=== PATIENT | female | born 1985 | race Caucasian/White ===

== ENCOUNTER 2018-02-13 17:55 | Emergency (ER) | payer MEDICAID, OTHER ==
[~2018-02-13] VITALS: Ht 565.3 cm; Wt 52.4 kg
[2018-02-13] MEDS ORDERED: LORazepam 1 MG tablet PO ONE (18:50)
[2018-02-13 19:29] LABS: BASOPHILS % (AUTO) 0.3 % (0-1); EOSINOPHILS # (AUTO) 0.2 X10'3 (0-0.9); EOSINOPHILS % (AUTO) 1.5 % (0-6); HEMATOCRIT 42.2 % (35.0-45.0); HEMOGLOBIN 14.6 g/dl (12.0-16.0); LYMPHOCYTES # (AUTO) 2.8 X10'3 (1.1-4.8); LYMPHOCYTES % (AUTO) 24.5 % (21-51); MEAN CORPUSCULAR HEMOGLOBIN 31.8 PG (27.0-31.0); MEAN CORPUSCULAR HGB CONC 34.6 % (33.0-36.5); MEAN PLATELET VOLUME 7.8 FL (7.4-10.4); MONOCYTES # (AUTO) 0.7 X10'3 (0-0.9); MONOCYTES % (AUTO) 5.7 % (2-12); NEUTROPHILS # (AUTO) 7.7 X10'3 (1.8-7.7); PLATELET COUNT 325 X10'3 (140-440); RED BLOOD COUNT 4.59 X10'6 (4.20-5.60); RED CELL DISTRIBUTION WIDTH 12.8 % (11.5-14.5); WHITE BLOOD COUNT 11.4 X10'3 (4.5-11.0)
[2018-02-13 19:30] LABS: URINE HCG NEGATIVE (NEG)
[2018-02-13 19:36] LABS: CLARITY,URINE SLIGHTLY CLOUDY (Clear); COLOR,URINE YELLOW (Yellow); GLUCOSE, URINE NEGATIVE (Neg); KETONES,URINE 15 mg/dl (Neg); LEUKOCYTE ESTERASE ,URINE NEGATIVE (Neg); NITRITES, URINE NEGATIVE (Neg); OCCULT BLOOD,URINE NEGATIVE (Neg); PH,URINE 5.5 (4.8-8.0); PROTEIN,URINE TRACE mg/dl (Neg); UROBILINOGEN,URINE 0.2 E.U/dL (0.2-1.0)
[2018-02-13 19:37] LABS: UA COLLECTION TYPE CLN CATCH MIDSTREAM
[2018-02-13 19:40] LABS: ALANINE AMINOTRANSFERASE 24 U/L (12-78); ALBUMIN/GLOBULIN RATIO 1.1 (1.1-1.5); ALKALINE PHOSPHATASE 43 IU/L (46-116); ANION GAP 11 (8-16); ASPARTATE AMINO TRANSFERASE 13 U/L (10-37); BILIRUBIN,TOTAL 0.9 MG/DL (0.1-1.0); BLOOD UREA NITROGEN 15 MG/DL (7-18); BUN/CREATININE RATIO 15.6 (6.6-38.0); CALCIUM 9.1 MG/DL (8.5-10.1); CHLORIDE 105 MMOL/L (99-107); CREATININE 0.96 MG/DL (0.40-0.90); GLUCOSE 141 MG/DL (70-104); POTASSIUM 3.4 MMOL/L (3.5-5.1); SODIUM 142 MMOL/L (135-145); TOTAL CARBON DIOXIDE 25.7 MMOL/L (24-32); TOTAL PROTEIN 7.8 G/DL (6.4-8.2); eGFR 67 ML/MIN
[2018-02-13 19:41] LABS: URINE AMPHETAMINE SCREEN POSITIVE (Neg); URINE BARBITUATE SCREEN NEGATIVE (Neg); URINE BENZODIAZEPINES SCREEN POSITIVE (Neg); URINE CANNABINOID SCREEN POSITIVE (Neg); URINE COCAINE SCREEN NEGATIVE (Neg); URINE METHADONE SCREEN NEGATIVE (Neg); URINE OPIATE SCREEN NEGATIVE (Neg); URINE PHENCYCLIDINE SCREEN NEGATIVE (Neg)
[2018-02-13 19:47] LABS: ETHANOL < 0.010 GM/DL (0.0-0.010)
[2018-02-13 19:47] LABS: BACTERIA,URINE 2+ /HPF (Neg); WBC,URINE 0-4 /HPF (0-4)
[2018-02-13 19:48] LABS: ACETAMINOPHEN < 2.0 UG/ML (10-30)
[2018-02-13 19:48] LABS: MUCUS STRANDS MANY /LPF (Neg); SQUAMOUS EPITHELIAL CELL,UR MANY /LPF (FEW)
[2018-02-13] MEDS ORDERED: NO HOME MEDS (22:30)
[2018-02-14 05:30] VITALS: BP 100/67
== END 2018-02-14 13:50 ==
LOC: ER 17:56
DX: F31.9 Bipolar disorder, unspecified (principal); F41.9 Anxiety disorder, unspecified; R45.851 Suicidal ideations; R45.850 Homicidal ideations; F12.90 Cannabis use, unspecified, uncomplicated
CPT/HCPCS: 36415; 80053; 80305; 80320; 80329; 81001; 81025; 84443; 85025; 99285

== ENCOUNTER 2022-04-12 15:59 | Inpatient (IN) | payer MEDICARE, MEDICAID ==
[~2022-04-12] VITALS: Ht 162.6 cm; Wt 61.5 kg
[~2022-04-12 15:59] MED LIST: NO HOME MEDS
[2022-04-12 16:38] LABS: BASOPHILS % (AUTO) 0.4 % (0-1); EOSINOPHILS # (AUTO) 0.1 X10'3 (0-0.9); EOSINOPHILS % (AUTO) 0.5 % (0-6); HEMATOCRIT 39.3 % (35.0-45.0); HEMOGLOBIN 13.6 g/dl (12.0-16.0); LYMPHOCYTES # (AUTO) 2.1 X10'3 (1.1-4.8); LYMPHOCYTES % (AUTO) 17.9 % (21-51); MEAN CORPUSCULAR HEMOGLOBIN 32.3 PG (27.0-31.0); MEAN CORPUSCULAR HGB CONC 34.6 g/dL (33.0-36.5); MEAN CORPUSCULAR VOLUME 93.4 FL (78-98); MEAN PLATELET VOLUME 7.4 FL (7.4-10.4); MONOCYTES # (AUTO) 0.9 X10'3 (0-0.9); MONOCYTES % (AUTO) 7.3 % (2-12); NEUTROPHILS # (AUTO) 8.8 X10'3 (1.8-7.7); NEUTROPHILS % (AUTO) 73.9 % (42-75); PLATELET COUNT 274 X10'3 (140-440); RED BLOOD COUNT 4.21 X10'6 (4.20-5.60); RED CELL DISTRIBUTION WIDTH 13.2 % (11.5-14.5)
[2022-04-12 16:54] LABS: ALANINE AMINOTRANSFERASE 16 U/L (12-78); ALBUMIN 4.1 G/DL (3.4-5.0); ALKALINE PHOSPHATASE 60 IU/L (46-116); ANION GAP 16 (8-16); ASPARTATE AMINO TRANSFERASE 17 U/L (10-37); BILIRUBIN,TOTAL 0.8 MG/DL (0.1-1.0); BLOOD UREA NITROGEN 17 MG/DL (7-18); CALCIUM 8.5 MG/DL (8.5-10.1); CHLORIDE 99 MMOL/L (99-107); CREATININE 0.81 MG/DL (0.40-0.90); GLUCOSE 79 MG/DL (70-104); POTASSIUM 3.4 MMOL/L (3.5-5.1); SODIUM 136 MMOL/L (135-145); TOTAL PROTEIN 8.2 G/DL (6.4-8.2); eGFR 80 ML/MIN
[2022-04-12 17:04] LABS: CLARITY,URINE CLOUDY (Clear); GLUCOSE, URINE NEGATIVE (Neg); KETONES,URINE >=80 mg/dl (Neg); LEUKOCYTE ESTERASE ,URINE NEGATIVE (Neg); NITRITES, URINE NEGATIVE (Neg); OCCULT BLOOD,URINE LARGE (Neg); PROTEIN,URINE 30 mg/dl (Neg)
[2022-04-12 17:04] LABS: ETHANOL < 0.010 GM/DL (0.0-0.010)
[2022-04-12 17:05] LABS: COLOR,URINE DARK YELLOW (Yellow); UA COLLECTION TYPE CLN CATCH MIDSTREAM
[2022-04-12 17:06] LABS: URINE HCG NEGATIVE (NEG)
[2022-04-12 17:11] LABS: BACTERIA,URINE 1+ /HPF (Neg); MUCUS STRANDS MANY /LPF (Neg); RBC,URINE 50-100 /HPF (0-2); SQUAMOUS EPITHELIAL CELL,UR MANY /LPF (FEW); WBC,URINE 0-4 /HPF (0-4)
[2022-04-12 17:18] LABS: URINE AMPHETAMINE SCREEN POSITIVE (Neg); URINE BARBITUATE SCREEN NEGATIVE (Neg); URINE BENZODIAZEPINES SCREEN POSITIVE (Neg); URINE CANNABINOID SCREEN POSITIVE (Neg); URINE COCAINE SCREEN POSITIVE (Neg); URINE METHADONE SCREEN NEGATIVE (Neg); URINE OPIATE SCREEN NEGATIVE (Neg); URINE PHENCYCLIDINE SCREEN NEGATIVE (Neg)
[2022-04-12] MEDS ORDERED: DIAZ5TAB5 PO (17:50)
[2022-04-12] MEDS ORDERED: nicotine 21mg patch - 24 hr TD ONE (17:50)
[2022-04-12] MEDS ORDERED: BUSP30TA3 PO (17:50)
[2022-04-12] MEDS ORDERED: FLUO-10 PO (17:50)
[2022-04-12] MEDS ORDERED: OLAN10TA73 PO (17:50)
[2022-04-12] MEDS ORDERED: FLUO40CA PO (17:50)
--- NOTE | 2022-04-12 20:32 | NUR ---
PT IN BED SLEEPING. ROOM IN FREE OF ALL CORDS AND EQUIPMENT. PT IS IN GREEN SCRUBS.
--- NOTE | 2022-04-12 21:17 | NUR ---
Client to be admitted to [facility] for suicidal ideation per Dr. Manuela Bose.
[2022-04-12 23:40] VITALS: BP 104/65
[2022-04-13] MEDS ORDERED: mag hydrox/Alum hydrox/simeth 30ml oral suspension PO PRN (01:25)
[2022-04-13] MEDS ORDERED: loperamide 2mg capsule PO PRN (01:25)
[2022-04-13] MEDS ORDERED: acetaminophen 325mg tablet PO PRN (01:25)
--- NOTE | 2022-04-13 02:03 | NUR ---
EEO OFFICER NOTE: LEGAL HOLD: 5150 for DTS PROBLEM: Client transferred to [facility] from ED at 23:35. Client reported taking 20 Valium Tabs and breaking a glass jar she then used to cut both wrists. Client reported a history of Bipolar DO, depression, anxiety, BPD, Bulimia (resolved), suicide attempts, and self injurious behavior. INTERVENTION: I. Provide a therapeutic environment. I. 1:1 intervention to allow client express her thoughts and feelings. I. Encourage attendance in groups. I.. Monitor mood, affect, and behavior. I. Admission assessments. RESPONSE: Clients' fiance broke off their engagement. Client stated, "I already have my dress, my ring, and the venue booked." Client was tearful during admission. (They have been together for 4 years. She has two children from a previous marriage.) Client reported she was extremely upset and took 20 Valium Tabs. In response, her family took all the sharp objects out of her house. Client became enraged and broke a michelle jar and cut her wrists. Client has a history of cutting starting in her twenties. Client reported prior attempts by overdose. She has had two prior inpatient psych admits ([facility] and [facility]). Reports a diagnosis of Bipolar DO and states, "I hear voices when I'm manic." UDS was positive for Benzo's, cannabis, cocaine, and amphetamines (has script for Adderall). Reports dx of Borderline Personality Disorder. Client was tearful during admission. She declined a shower. Affect and mood are depressed. Went to bed after assessments were completed.
[2022-04-13 08:00] VITALS: BP 92/55
[2022-04-13] MEDS: FLUoxetine 20mg capsule PO SCH ×2 (08:52)
[2022-04-13] MEDS: busPIRone 15mg tablet PO SCH ×2 (08:52→20:37)
[2022-04-13] MEDS: diazepam 5mg tablet PO PRN ×2 (13:16→20:42)
--- NOTE | 2022-04-13 13:18 | NUR ---
PRNs Administered: Valium Interventions Offered: Pt. was provided with a quiet environment free from distractions and active listening. Response to Medication: Pt. thanked this procedure writer for them medication, will continue to monitor closely.
[2022-04-13] MEDS: nicotine 21mg patch - 24 hr TD SCH (13:50)
--- NOTE | 2022-04-13 16:15 | NUR ---
Nursing Progress Note: Problem : Client was admitted from the ER. Client reported taking 20 Valium Tabs and breaking a glass jar she then used to cut both wrists. Client reported a history of Bipolar DO, depression, anxiety, BPD, Bulimia (resolved), suicide attempts, and self injurious behavior. Interventions : Introduced self and established rapport, maintained a safe and supportive environment, provided clear and simple instructions, provided active listening and positive encouragement, obtained pictures of self-inflicted abrasions on bilateral arms, and maintained Q15 min safety checks. Response : Received pt. sleeping in bed at the beginning of the shift, she was awoken to attend breakfast in the Group Room and afterwards returned back to bed. Pt. continued to isolate in her room throughout much of the shift, napping intermittently. 1:1 was completed at bedside, pt. presents as cooperative, fatigued, guarded, and withdrawn. She reports ongoing S/I, however denies any current plan. Pt. laughs and states, "The plan is gone now!" She appears to be minimizing any mental health s/s. Pt. has self-inflicted superficial abrasions present on her bilateral arms. Areas appear to be scabbed over and healing well. Pictures obtained and placed in chart, will continue to monitor pt. closely. Plan : Pt. requires interruption of current crisis, medication adjustments, and a safe and supportive environment.
[2022-04-13 20:00] VITALS: BP 99/59
[2022-04-13] MEDS: olanzapine 10mg tablet PO SCH (20:37)
[2022-04-13] MEDS: traZODone 50mg tablet PO PRN (20:42)
--- NOTE | 2022-04-14 01:55 | NUR ---
Nursing Progress Note: Seema Problem : Client was admitted from the ER. Client reported taking 20 Valium Tabs and breaking a glass jar she then used to cut both wrists. Client reported a history of Bipolar DO, depression, anxiety, BPD, Bulimia (resolved), suicide attempts, and self injurious behavior. Interventions : Introduced self and established rapport, maintained a safe and supportive environment, provided clear and simple instructions, provided active listening and positive encouragement, obtained pictures of self-inflicted abrasions on bilateral arms, and maintained Q15 min safety checks. Response : Received pt. lying in bed resting. 1:1 assessment complete at bedside, pt. presents as cooperative, fatigued, guarded, and withdrawn. She reports ongoing S/I, however denies any current plan. Pt tearful at times stating that she misses her children and doesnt know what to do (states she doesnt like it here or at home.) PRN 5MG valium and 50MG trazadone given upon request with good effect. Pt declined snacks and went back to bed, will continue to monitor pt. closely. Plan : Pt. requires interruption of current crisis, medication adjustments, and a safe and supportive environment.
[2022-04-14] MEDS: busPIRone 15mg tablet PO SCH ×2 (07:36→20:45)
[2022-04-14] MEDS: nicotine 21mg patch - 24 hr TD SCH (07:36)
[2022-04-14] MEDS: FLUoxetine 20mg capsule PO SCH ×2 (07:37→08:00)
[2022-04-14 07:50] VITALS: BP 98/59
[2022-04-14 08:57] LABS: CHOL/HDL RATIO 2.5 (0.00-4.99); CHOLESTEROL 196 MG/DL (0-200); HDL CHOLESTEROL 79 MG/DL (35-60); LDL CHOLESTEROL 95 MG/DL (50-100); TRIGLYCERIDES 105 MG/DL (20-135)
[2022-04-14 09:15] LABS: HEMOGLOBIN A1C 5.1 % (4.5-6.2)
[2022-04-14] MEDS: diazepam 5mg tablet PO PRN ×2 (14:11→20:45)
[2022-04-14] MEDS: OLANZapine 2.5MG tablet PO PRN (17:30)
--- NOTE | 2022-04-14 18:02 | NUR ---
Nursing Progress Note: Problem: Client was admitted from the ER. Client reported taking 20 Valium Tabs and breaking a glass jar she then used to cut both wrists. Client reported a history of Bipolar DO, depression, anxiety, BPD, Bulimia (resolved), suicide attempts, and self-injurious behavior. Intervention: Provided with a safe and therapeutic environment, clear communication, active listening and positive encouragement. Response: Patient is resting quietly in bed at the start of the shift. Cooperative with medication and assessment. Continues to endorse suicidal ideation related to her recent breakup and overwhelming responsibilities. States tearfully, I just keep thinking of all the ways I could hurt myself even in here but I cant! PRN diazepam is given with good effect. After 2-3 hours the patient asks for another PRN. She is tearful and complains of intrusive thoughts of wanting to harm herself. Assisted with getting phone numbers off her phone. Provider gives a new order for Zyprexa PRN which is given. Patient isolates to her room most of the shift. Plan: Patient continues to require crisis interruption and stabilization with medication management and monitoring in a safe and therapeutic environment.
[2022-04-14 19:54] VITALS: BP 99/69
[2022-04-14] MEDS: olanzapine 10mg tablet PO SCH (20:44)
[2022-04-14] MEDS: traZODone 50mg tablet PO PRN (20:44)
--- NOTE | 2022-04-15 00:42 | NUR ---
Nursing Progress Note: Seema Problem: Client was admitted from the ER. Client reported taking 20 Valium Tabs and breaking a glass jar she then used to cut both wrists. Client reported a history of Bipolar DO, depression, anxiety, BPD, Bulimia (resolved), suicide attempts, and self-injurious behavior. Intervention: Provided with a safe and therapeutic environment, clear communication, active listening and positive encouragement. Response: Patient is resting in bed at change of shift. Pt is cooperative with care, endorses SI related to her recent breakup. Pt tearful at times stating that she misses her children and has court on Friday for custody of them which has been very stressful for her. Pt is anxious and depressed, PRN diazepam given with good effect. Pt declined snacks but took all HS medications without issue. Isolated to her room all evening. Plan: Patient continues to require crisis interruption and stabilization with medication management and monitoring in a safe and therapeutic environment.
[2022-04-15 08:00] VITALS: BP 90/50
[2022-04-15] MEDS: busPIRone 15mg tablet PO SCH ×2 (08:11→19:49)
[2022-04-15] MEDS: FLUoxetine 20mg capsule PO SCH ×2 (08:12)
[2022-04-15] MEDS: nicotine 21mg patch - 24 hr TD SCH (08:12)
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
[2022-04-15 19:41] VITALS: BP 101/66
[2022-04-15] MEDS: traZODone 50mg tablet PO PRN (19:48)
[2022-04-15] MEDS: olanzapine 10mg tablet PO SCH (19:49)
[2022-04-15] MEDS: NICOTINE POLACRILEX 2 MG LOZENGE BC PRN (19:54)
[2022-04-15] MEDS: diazepam 5mg tablet PO PRN (19:58)
--- NOTE | 2022-04-16 01:57 | NUR ---
Nursing Progress Note: Seema Problem: Patient admitted on 5249 as DTS for taking 20 Valium Tabs and breaking a glass jar she then used to cut both wrists. Patient with history of Bipolar Disorder, depression, anxiety, Borderline Personality Disorder, Bulimia (resolved), suicide attempts, and self-injurious behavior. Intervention: Introduced self and established rapport, maintained a safe and supportive environment, provided clear and simple instructions, provided active listening and positive encouragement, obtained pictures of self-inflicted abrasions on bilateral arms, and maintained Q15 min safety checks. Response: Patient cooperative with care, vocalized SI related to her recent breakup with no specific plan. Patient verbalized being stressed about having to go to court on Friday for custody of children. Complained of being anxious and depressed and asked for PRN diazepam; requested PRN medication given per MD order with good effect. Took all medications; patient verbalized that medications have been helping her. Patient last seen laying in bed comfortably. Plan: Patient continues to require crisis interruption and stabilization with medication management and monitoring in a safe and therapeutic environment.
[2022-04-16] MEDS: busPIRone 15mg tablet PO SCH ×2 (08:06→20:19)
[2022-04-16] MEDS: FLUoxetine 20mg capsule PO SCH ×2 (08:06)
[2022-04-16] MEDS: nicotine 21mg patch - 24 hr TD SCH (08:09)
[2022-04-16 08:18] VITALS: BP 95/51
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
[2022-04-16 19:23] VITALS: BP 101/54
[2022-04-16] MEDS: NICOTINE POLACRILEX 2 MG LOZENGE BC PRN (20:19)
[2022-04-16] MEDS: diazepam 5mg tablet PO PRN (20:19)
[2022-04-16] MEDS: olanzapine 10mg tablet PO SCH (20:19)
--- NOTE | 2022-04-17 01:18 | NUR ---
Nursing Progress Note: Seema Problem: Patient admitted on 5250 as DTS for taking 20 Valium Tabs and breaking a glass jar she then used to cut both wrists. Patient with history of Bipolar Disorder, depression, anxiety, Borderline Personality Disorder, Bulimia (resolved), suicide attempts, and self-injurious behavior. Intervention: Introduced self and established rapport, maintained a safe and supportive environment, provided clear and simple instructions, provided active listening and positive encouragement, and maintained Q15 minute safety checks. Response: Patient cooperative with assessment, vocalized SI related to multiple stressors. Patient verbalized being stressed about being away from her sons, rip-tara continuing to live in her house although her kids are with him, and her not feeling inadequate. Patient verbalized gratitude for taking time to talk with her and listen to her. PRN Valium administered with good effect. Patient last seen laying in bed comfortably. Plan: Patient continues to require crisis interruption and stabilization with medication management and monitoring in a safe and therapeutic environment.
--- NOTE | 2022-04-17 07:26 | NUR ---
Initial: Pt admitted w/ depression and SI per EMR. Currently on Regular diet w/ avg intake 60% of meals meeting est needs at this time. Pt still feeling very depressed per MD note. LBM 04/15. No nutrition intervention implemented at this time, will continue to monitor. Recs: 1. Continue Regular diet as tolerated 2. Bowel care PRN 3. Scaled wts Addendum: 04/17/22 at [address] Amended: Links added.
[2022-04-17] MEDS: acetaminophen 325mg tablet PO PRN (07:41)
[2022-04-17] MEDS: nicotine 21mg patch - 24 hr TD SCH (07:42)
[2022-04-17 07:51] VITALS: BP 84/50
[2022-04-17] MEDS: busPIRone 15mg tablet PO SCH ×2 (09:05→20:30)
[2022-04-17] MEDS: FLUoxetine 20mg capsule PO SCH ×2 (09:05)
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
--- NOTE | 2022-04-17 18:00 | NUR ---
Nursing Progress Note: Problem: Patient was arrested for running naked in traffic on [address]. Pt stated running in traffic nude is "Healthy" and failed to realize the dangers. Pt not drinking water and gravely disabled. Pts history is unknown and pt is poor historian. Intervention: Provided with a safe and therapeutic environment, clear communication, active listening and positive encouragement. Scheduled medications administered per order. Response: Pt. was asleep in bed at start of shift. Pt awoke and ate breakfast in community room. Pt. took all medications and went back to his room to sleep. Pt. socially withdrawn and isolated to his room most of the day. 1:1 done at bedside, pt. denies all psych symptoms. Pt. gives minimal responses to this RNs questions. Pt. reports that he feels the medications are helping him and denies side effects. Pt. reports he feels hopeful for discharge soon. Pt. reports he lived in [place], [place] and move to [place] to live with a friend but ended up being homeless for 2.5 years. Pt. states, It went by fast You just find people who will help you out sometimes. RN asked pt. if any family was concerned about him being homeless and pt. states, No, they forgot about me. Pt. had no episodes of self-harm today. Plan: Patient continues to require crisis interruption and stabilization with medication management and monitoring in a safe and therapeutic environment. Addendum: 04/18/22 at 1652 by Frank Glynn RN THIS WAS CHARTED ON THE WRONG PATIENT
--- NOTE | 2022-04-17 18:05 | NUR ---
DISCARD THE NOTE BELOW. IT WAS CHARTED ON THE WRONG PATIENT.
[2022-04-17] MEDS: NICOTINE POLACRILEX 2 MG LOZENGE BC PRN (19:30)
[2022-04-17 20:00] VITALS: BP 89/48
[2022-04-17] MEDS: olanzapine 10mg tablet PO SCH (20:30)
[2022-04-17] MEDS: diazepam 5mg tablet PO PRN (20:46)
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
[2022-04-18 07:52] VITALS: BP 98/51
[2022-04-18 08:23] LABS: BASOPHILS % (AUTO) 0.5 % (0-1); EOSINOPHILS # (AUTO) 0.1 X10'3 (0-0.9); EOSINOPHILS % (AUTO) 1.4 % (0-6); HEMATOCRIT 38.2 % (35.0-45.0); HEMOGLOBIN 12.9 g/dl (12.0-16.0); LYMPHOCYTES % (AUTO) 29.9 % (21-51); MEAN CORPUSCULAR HEMOGLOBIN 32.1 PG (27.0-31.0); MEAN CORPUSCULAR HGB CONC 33.9 g/dL (33.0-36.5); MEAN CORPUSCULAR VOLUME 94.7 FL (78-98); MEAN PLATELET VOLUME 7.8 FL (7.4-10.4); MONOCYTES # (AUTO) 0.6 X10'3 (0-0.9); NEUTROPHILS # (AUTO) 4.1 X10'3 (1.8-7.7); NEUTROPHILS % (AUTO) 60.2 % (42-75); PLATELET COUNT 232 X10'3 (140-440); RED BLOOD COUNT 4.03 X10'6 (4.20-5.60); RED CELL DISTRIBUTION WIDTH 12.8 % (11.5-14.5); WHITE BLOOD COUNT 6.8 X10'3 (4.5-11.0)
[2022-04-18 08:32] LABS: ALBUMIN 3.2 G/DL (3.4-5.0); ANION GAP 5 (8-16); BLOOD UREA NITROGEN 15 MG/DL (7-18); BUN/CREATININE RATIO 17.6 (6.6-38.0); CALCIUM 8.5 MG/DL (8.5-10.1); CHLORIDE 104 MMOL/L (99-107); CREATININE 0.85 MG/DL (0.40-0.90); GLUCOSE 98 MG/DL (70-104); POTASSIUM 3.9 MMOL/L (3.5-5.1); SODIUM 138 MMOL/L (135-145); TOTAL CARBON DIOXIDE 29.3 MMOL/L (24-32); eGFR 76 ML/MIN
[2022-04-18] MEDS ORDERED: docusate sod 100mg capsule PO ONE (08:55)
[2022-04-18] MEDS: busPIRone 15mg tablet PO SCH ×2 (08:56→20:52)
[2022-04-18] MEDS: FLUoxetine 20mg capsule PO SCH ×2 (08:56)
--- NOTE | 2022-04-18 09:00 | NUR ---
Pt.'s ultrasound showed left ovarian cyst. RN informed MARI Whelan pt. to be treated in outpatient.
[2022-04-18] MEDS: nicotine 21mg patch - 24 hr TD SCH (09:02)
--- NOTE | 2022-04-18 13:39 | NUR ---
5250 upheld for DTS
[2022-04-18] MEDS: diazepam 5mg tablet PO PRN ×2 (14:54→21:03)
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
[2022-04-18 19:00] VITALS: BP 96/60
[2022-04-18] MEDS: olanzapine 10mg tablet PO SCH (20:52)
[2022-04-18] MEDS: traZODone 50mg tablet PO PRN ×2 (20:52→22:52)
[2022-04-18] MEDS: docusate sod 100mg capsule PO SCH (20:52)
--- NOTE | 2022-04-18 23:40 | NUR ---
RN PROGRESS NOTE (NOC): LEGAL HOLD: 5250 for DTS PROBLEM: Client reported taking 20 Valium Tabs and breaking a glass and cutting both wrists. Client reported a history of Bipolar DO, depression, anxiety, BPD, Bulimia (resolved), suicide attempts, and self injurious behavior. INTERVENTION: I. Provide a therapeutic environment. I. 1:1 intervention to allow client express her thoughts and feelings. I. Encourage attendance in groups. I.. Monitor mood, affect, and behavior. I. 1:1 intervention to allow client to discuss thoughts and feelings. RESPONSE: Client was in bed at [facility]. Client reported "feeling better". Client reports that her father has been very helpful and supportive. She still is unable to contract for safety. She was pleasant, cooperative, and took all PM meds. Requested 5 mg Valium Tab PO PRN to help her "relax and fall asleep". Affect is blunted. Mood is improving.
[2022-04-19] MEDS: docusate sod 100mg capsule PO SCH ×2 (07:48→21:26)
[2022-04-19] MEDS: FLUoxetine 20mg capsule PO SCH ×2 (07:48→08:39)
[2022-04-19] MEDS: nicotine 21mg patch - 24 hr TD SCH (07:49)
[2022-04-19] MEDS: busPIRone 15mg tablet PO SCH ×2 (07:49→21:26)
[2022-04-19 08:00] VITALS: BP 83/47
--- NOTE | 2022-04-19 16:02 | NUR ---
Nursing Progress Note: Problem: Client was admitted from the ER. Client reported taking 20 Valium Tabs and breaking a glass jar she then used to cut both wrists. Client reported a history of Bipolar DO, depression, anxiety, BPD, Bulimia (resolved), suicide attempts, and self-injurious behavior. Intervention: Provided with a safe and therapeutic environment, clear communication, active listening and positive encouragement. Response: Patient is resting quietly in bed at the start of the shift. Cooperative with medication and assessment. Endorses suicidal ideation but denies having a plan at this time. Contracts for safety while here on the unit. Patient isolates to her room all day and only comes out for meals and meeting her needs. She is noted talking on the phone. She appears depressed and is tearful at times. Verbalizes feeling better than when she first arrived on the unit. Plan: Patient continues to require crisis interruption and stabilization with medication management and monitoring in a safe and therapeutic environment.
[2022-04-19 20:00] VITALS: BP 87/53
[2022-04-19] MEDS: traZODone 50mg tablet PO PRN ×2 (21:26→21:54)
[2022-04-19] MEDS: olanzapine 10mg tablet PO SCH (21:26)
[2022-04-19] MEDS: diazepam 5mg tablet PO PRN (21:54)
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
[2022-04-20 08:00] VITALS: BP 98/70
[2022-04-20] MEDS: busPIRone 15mg tablet PO SCH ×2 (08:11→21:28)
[2022-04-20] MEDS: docusate sod 100mg capsule PO SCH (08:11)
[2022-04-20] MEDS: nicotine 21mg patch - 24 hr TD SCH (08:11)
[2022-04-20] MEDS: FLUoxetine 20mg capsule PO SCH (08:11)
--- NOTE | 2022-04-20 16:40 | NUR ---
Nursing Progress Note: Problem: Client was admitted from the ER. Client reported taking 20 Valium Tabs and breaking a glass jar she then used to cut both wrists. Client reported a history of Bipolar DO, depression, anxiety, BPD, Bulimia (resolved), suicide attempts, and self-injurious behavior. Intervention: Provided with a safe and therapeutic environment, clear communication, active listening and positive encouragement. Response: Patient is resting quietly in bed at the start of the shift. Cooperative with medication and assessment. Mood appears improved and no tearfulness is noted. Continues to endorse passive thoughts of suicide and does not contract for safety if discharged. Denies having a plan at this time and expresses the desire to live for her sons. Participates in group and spends time socializing in the community room. In the afternoon the patient paces the unit and socializes pleasantly with one of her peers. Plan: Patient continues to require crisis interruption and stabilization with medication management and monitoring in a safe and therapeutic environment.
[2022-04-20] MEDS: NICOTINE POLACRILEX 2 MG LOZENGE BC PRN (18:10)
[2022-04-20 19:00] VITALS: BP 88/60
[2022-04-20] MEDS: diazepam 5mg tablet PO PRN (21:26)
[2022-04-20] MEDS: olanzapine 10mg tablet PO SCH (21:26)
[2022-04-20] MEDS: traZODone 50mg tablet PO PRN (21:27)
--- NOTE | 2022-04-21 01:09 | NUR ---
Nursing Progress Note: Problem: Client was admitted from the ER. Client reported taking 20 Valium Tabs and breaking a glass jar she then used to cut both wrists. Client reported a history of Bipolar DO, depression, anxiety, BPD, Bulimia (resolved), suicide attempts, and self-injurious behavior. Intervention: Provided with a safe and therapeutic environment, clear communication, active listening and positive encouragement. Response: Patient isolates in her room following shift change. 1:1 Interview at bedside. Patient tells this director underwriter sales she bonded with another patient who also has a personality disorder. They paced the hallways for a couple of hours. The patient continues to have intermittent thoughts of S/I. eg: Breaking out a window? She denies H/I or any hallucinations. The patients thoughts are about what she is going to say to her boyfriend/fiance when she gets out of this unit. Patient is concerned about him being critical of her. She wants a fresh start with no criticism from him. She plans to use a bipolar friend as an intermediary. This director underwriter sales suggested that patient speak with a provider about this plan. The patient is cooperative and medication compliant. Diazepam was given for anxiety, Trazadone for sleep. Plan: Patient continues to require crisis interruption and stabilization with medication management and monitoring in a safe and therapeutic environment.
[2022-04-21 08:00] VITALS: BP 91/53
[2022-04-21] MEDS: busPIRone 15mg tablet PO SCH ×2 (08:57→20:29)
[2022-04-21] MEDS: FLUoxetine 20mg capsule PO SCH (08:57)
[2022-04-21] MEDS: nicotine 21mg patch - 24 hr TD SCH (09:03)
[2022-04-21] MEDS: NICOTINE POLACRILEX 2 MG LOZENGE BC PRN ×4 (12:55→19:06)
--- NOTE | 2022-04-21 15:04 | NUR ---
NURSING PROGRESS NOTE Problem: Patient was admitted from the ER. Reported taking 20 Valium tabs and breaking a glass jar she then used to cut both wrists. Patient has a history of Bipolar DO, depression, anxiety, BPD, Bulimia (resolved), suicide attempts, and self-injurious behavior. Intervention: Provided one on one assessment, encouraging pt to discuss thoughts and feelings, provided safe and supportive environment, administered medication as ordered with no adverse side effect, explained benefits, encouraged participation in ADLs and group, Q15 min safety rounds. Response: Received patient sleeping at shift change. Pt declined breakfast, she states she doesnt usually eat in the mornings. Pt reports feeling a little groggy, but slept like a rock. Pt was cooperative with medication and care. Pt presents with a bright affect, states her mood is improving. No tearful episodes noted. Pt denies passive suicidal thoughts with not intent on acting upon them. Jose E A/VH. Pt has some apprehension about going home r/t seeing her fiance. Pt is visible on unit, attending group, social with one of her peers. Pt started her menstrual cycle and was given hygiene products. Nicotine lozenge were utilized twice this shift. Plan: Patients mood seems to be stabilizing, however will continue to titrate and monitor medication until effective dose.
[2022-04-21 19:50] VITALS: BP 94/57
[2022-04-21] MEDS: diazepam 5mg tablet PO PRN (20:29)
[2022-04-21] MEDS: olanzapine 10mg tablet PO SCH (20:30)
[2022-04-21] MEDS: traZODone 50mg tablet PO PRN ×2 (20:30→22:22)
--- NOTE | 2022-04-21 23:00 | NUR ---
NURSING PROGRESS NOTE Seema Problem: Patient was admitted from the ER. Reported taking 20 Valium tabs and breaking a glass jar she then used to cut both wrists. Patient has a history of Bipolar DO, depression, anxiety, BPD, Bulimia (resolved), suicide attempts, and self-injurious behavior. Intervention: Provided one on one assessment, encouraging pt to discuss thoughts and feelings, provided safe and supportive environment, administered medication as ordered with no adverse side effect, explained benefits, encouraged participation in ADLs and group, Q15 min safety rounds. Response: Received patient in rec room watching TV with peers. Pt cooperative with care. Pt states she has less thoughts about suicide. She has a significant amount of anxiety about going home and that shes not ready. She states that she is not sure whether or not she has a fianc but when she leaves here she will have a friend come pick her up. Pt took HS medication without issue. Pt watched TV in rec room until bed time. Pt up at 2225 for second dose of trazadone. Plan: Patients mood seems to be stabilizing, however will continue to titrate and monitor medication until effective dose.
--- NOTE | 2022-04-22 07:24 | NUR ---
Reassessment: Pt continues on Regular diet w/ avg intake 78% x 10 meals meeting est needs at this time. [facility] 04/19 w/ PRN bowel care available. No nutrition intervention implemented at this time, will continue to monitor. Recs: 1. Continue Regular diet as tolerated 2. Bowel care PRN 3. Scaled wts Addendum: 04/22/22 at [address] Amended: Links added.
[2022-04-22 08:00] VITALS: BP 80/47
[2022-04-22] MEDS: busPIRone 15mg tablet PO SCH ×2 (09:50→20:11)
[2022-04-22] MEDS: FLUoxetine 20mg capsule PO SCH (09:50)
[2022-04-22] MEDS: nicotine 21mg patch - 24 hr TD SCH (09:54)
[2022-04-22] MEDS: diazepam 5mg tablet PO PRN ×2 (10:41→20:11)
[2022-04-22] MEDS: NICOTINE POLACRILEX 2 MG LOZENGE BC PRN ×2 (12:51→19:10)
--- NOTE | 2022-04-22 17:12 | NUR ---
NURSING PROGRESS NOTE Problem: Patient was admitted from the ER. Reported taking 20 Valium tabs and breaking a glass jar she then used to cut both wrists. Patient has a history of Bipolar DO, depression, anxiety, BPD, Bulimia (resolved), suicide attempts, and self-injurious behavior. Intervention: Provided one on one assessment, encouraging pt to discuss thoughts and feelings, provided safe and supportive environment, administered medication as ordered with no adverse side effect, explained benefits, encouraged participation in ADLs and group, Q15 min safety rounds. Response: Received Pt in bed sleeping under covers and in no distress at the beginning of the shift. She woke and was cooperative with vitals and returned to sleep. Pt slept through breakfast and took AM meds w/o issue. Pt went out to patio with others and enjoyed the fresh air. Pt attended AM group as well. She remains concerned about continued menstrual bleeding. Pts labs shown to Dr Bose who explained that nothing looked urgent. Pt socialized with others in community room and ate meals well. She watched TV in Rec. RM with others and napped in room a bit as well. Pt appears tired and depressed and did not use PRN meds this shift. Pt is pleasant and cooperative, and spoke clearly during assessments. Plan: Patients mood seems to be stabilizing, however will continue to titrate and monitor medication until effective dose.
[2022-04-22] MEDS: magnesium hydroxide 30ml (MOM) UD suspension PO PRN (19:27)
[2022-04-22 20:00] VITALS: BP 97/65
[2022-04-22] MEDS: traZODone 50mg tablet PO PRN ×2 (20:11→21:08)
[2022-04-22] MEDS: olanzapine 10mg tablet PO SCH (20:11)
--- NOTE | 2022-04-22 23:37 | NUR ---
NURSING PROGRESS NOTE: Seema Problem: Patient was admitted from the ER. Reported taking 20 Valium tabs and breaking a glass jar she then used to cut both wrists. Patient has a history of Bipolar DO, depression, anxiety, BPD, Bulimia (resolved), suicide attempts, and self-injurious behavior. Intervention: Provided one on one assessment, encouraging pt to discuss thoughts and feelings, provided safe and supportive environment, administered medication as ordered with no adverse side effect, explained benefits, encouraged participation in ADLs and group, Q15 min safety rounds. Response: Received up in community room watching TV with peers. Pt is pleasant, smiling stating she is feeling better every day. She has less thoughts about SI but still has some anxiety about going home. Pt c/o constipation, MOM given. Pt up for snacks and took all HS medications including PRN valium and trazadone X2. Pt to bed after med pass. Plan: Patients mood seems to be stabilizing, however will continue to titrate and monitor medication until effective dose.
[2022-04-23 07:57] VITALS: BP 97/60
[2022-04-23] MEDS: FLUoxetine 20mg capsule PO SCH (08:26)
[2022-04-23] MEDS: busPIRone 15mg tablet PO SCH ×2 (08:26→20:11)
[2022-04-23] MEDS: nicotine 21mg patch - 24 hr TD SCH (08:27)
[2022-04-23] MEDS: diazepam 5mg tablet PO PRN ×2 (09:24→20:11)
--- NOTE | 2022-04-23 16:28 | NUR ---
NURSING PROGRESS NOTE Problem: Patient was admitted from the ER. Reported taking 20 Valium tabs and breaking a glass jar she then used to cut both wrists. Patient has a history of Bipolar DO, depression, anxiety, BPD, Bulimia (resolved), suicide attempts, and self-injurious behavior. Intervention: Provided one on one assessment, encouraging pt to discuss thoughts and feelings, provided safe and supportive environment, administered medication as ordered with no adverse side effect, explained benefits, encouraged participation in ADLs and group, Q15 min safety rounds. Assessed for Covid symptoms. Response: Received patient sleeping at shift change. Pt slept 7.5 hours per sleep assessment. Pt reports difficult time falling asleep and not sleeping well. I was up before the sun. Pt ate all meals in her room r/t Covid outbreak on unit. No group today. Pt was compliant with her medication. She requested PRN Valium around 0930, got upset because her dose was cut in half to 2.5mg. Pt stated 5mg is part of her home medication regimen. Pt watched T.V in community room keeping distance between peers. Pt is slightly anxious r/t contact limitations and no group. Pt has passive SI, but intention on acting upon them. Plan: Patients mood seems to be stabilizing, however will continue to titrate and monitor medication until effective dose. Addendum: 04/23/22 at 1629 by Jessenia Shell RN Pt had no c/o head or body aches, sore throat, N/V, cough. Pt has a bright affect.
[2022-04-23 20:10] VITALS: BP 101/67
[2022-04-23] MEDS: olanzapine 10mg tablet PO SCH (20:11)
[2022-04-23] MEDS: NICOTINE POLACRILEX 2 MG LOZENGE BC PRN (20:11)
[2022-04-23] MEDS: traZODone 50mg tablet PO PRN ×2 (20:12→21:14)
[2022-04-23] MEDS: magnesium hydroxide 30ml (MOM) UD suspension PO PRN (20:12)
[2022-04-23] MEDS: OLANZapine 2.5MG tablet PO PRN (22:45)
--- NOTE | 2022-04-23 23:14 | NUR ---
Nursing Progress Note: Seema Problem: Patient was admitted from the ER. Reported taking 20 Valium tabs and breaking a glass jar she then used to cut both wrists. Patient has a history of Bipolar DO, depression, anxiety, BPD, Bulimia (resolved), suicide attempts, and self-injurious behavior. Interventions: Medication administration. Maintained a safe and supportive environment, provided clear and simple instructions, provided direction and encouragement regarding performance of ADLs, monitored behaviors and maintained clear boundaries, provided positive reinforcement, and maintained Q15 minute safety checks. Upon patient complaining about medications, this RN educated patient on the importance of dealing with underlying issues as medications only help manage symptoms. PRN laxative, sleep aid and anti-anxiety medications administered as ordered. Response: Patient received laying in bed at shift change with bright affect. Complained about how having Valium dose being cut in half has not been helping her. Reported difficult time falling asleep and kept waking up throughout night. I was up before the sun. Patient verbalized understanding to education about seeking help to deal with underlying issues, stated "I need to face my problems head on and get help. I don't wanna use medications to not deal with them." Patient voiced that she has passive SI, but has no intention on acting upon them. Requested PRN Valium, trazodone to help sleep better, as well as MOM since no BM since 3-4 days. Took all PRN and scheduled medications without hesitation. Patient last seen resting in bed around 2250. Plan: Patients mood seems to be stabilizing, however will continue to titrate and monitor medication until effective dose. Patient continues to require crisis interruption and stabilization, and monitoring in a safe and therapeutic environment.
[2022-04-24] MEDS: busPIRone 15mg tablet PO SCH ×2 (07:52→20:24)
[2022-04-24] MEDS: FLUoxetine 20mg capsule PO SCH (07:52)
[2022-04-24] MEDS: nicotine 21mg patch - 24 hr TD SCH (07:57)
[2022-04-24 08:00] VITALS: BP 106/51
[2022-04-24] MEDS: magnesium hydroxide 30ml (MOM) UD suspension PO PRN (17:54)
--- NOTE | 2022-04-24 18:00 | NUR ---
NURSING PROGRESS NOTE Problem: Patient was admitted from the ER. Reported taking 20 Valium tabs and breaking a glass jar she then used to cut both wrists. Patient has a history of Bipolar DO, depression, anxiety, BPD, Bulimia (resolved), suicide attempts, and self-injurious behavior. Intervention: Provided one on one assessment, encouraging pt to discuss thoughts and feelings, provided safe and supportive environment, administered medication as ordered with no adverse side effect, explained benefits, encouraged participation in ADLs and group, Q15 min safety rounds. Response: Received Pt in bed sleeping and in no distress at the beginning of the shift. She woke and was cooperative with vitals and returned to sleep. Pt ate meals in her room and was cooperative with covid restrictions on the unit. Pt reported feeling like MOM was working in AM, but in afternoon wanted to repeat MOM and it was given to her. Pt rested and napped in bed a lot. Pt able to smile and has a brighter affect at times. Pt states Im bored. Plan: Patients mood seems to be stabilizing, however will continue to titrate and monitor medication until effective dose.
[2022-04-24 19:00] VITALS: BP 94/60
[2022-04-24] MEDS: olanzapine 10mg tablet PO SCH (20:24)
[2022-04-24] MEDS: traZODone 50mg tablet PO PRN ×2 (20:25→22:08)
[2022-04-24] MEDS: diazepam 5mg tablet PO PRN (20:25)
[2022-04-24] MEDS: OLANZapine 2.5MG tablet PO PRN (22:08)
--- NOTE | 2022-04-24 23:57 | NUR ---
NURSING PROGRESS NOTE Problem: Patient was admitted from the ER. Reported taking 20 Valium tabs and breaking a glass jar she then used to cut both wrists. Patient has a history of Bipolar DO, depression, anxiety, BPD, Bulimia (resolved), suicide attempts, and self-injurious behavior. Intervention: Provided one on one assessment, encouraging pt to discuss thoughts and feelings, provided safe and supportive environment, administered medication as ordered with no adverse side effect, explained benefits, encouraged participation in ADLs and group, Q15 min safety rounds. Response: Patient was received laying in bed at beginning of shift. Patient continues to complain about heavy bleeding and feeling weak. Patient spend most of the shift laying in bed except for occasionally walking down alves before returning back to bed. Patient request prn trazodone and Valium. Along with night medications which patient takes without issue. Patient request Colace but she doesn't have it ordered. Patient was offered milk of mag and refused. Patient rested for a few hours before getting up and asking for prn Zyprexa and repeat trazodone. Patient returned to bed. Plan: Patients mood seems to be stabilizing, however will continue to titrate and monitor medication until effective dose.
[2022-04-25 07:00] VITALS: BP 95/55
[2022-04-25] MEDS: busPIRone 15mg tablet PO SCH ×2 (08:22→20:36)
[2022-04-25] MEDS: nicotine 21mg patch - 24 hr TD SCH ×2 (08:23→08:35)
[2022-04-25] MEDS: tolterodine 2mg SR capsule (24hr) PO SCH (08:23)
[2022-04-25] MEDS: FLUoxetine 20mg capsule PO SCH (10:39)
[2022-04-25] MEDS: diazepam 5mg tablet PO PRN ×2 (10:49→20:37)
--- NOTE | 2022-04-25 16:55 | NUR ---
NURSING PROGRESS NOTE Problem: Patient was admitted from the ER. Reported taking 20 Valium tabs and breaking a glass jar she then used to cut both wrists. Patient has a history of Bipolar DO, depression, anxiety, BPD, Bulimia (resolved), suicide attempts, and self-injurious behavior. Intervention: Provided one on one assessment, encouraging pt to discuss thoughts and feelings, provided safe and supportive environment, administered medication as ordered with no adverse side effect, explained benefits, encouraged participation in ADLs and group, Q15 min safety rounds. Response: Received pt at approximately 10:00 a.m. Patient sleeping at that time, and was awakened, patient states immediately that she wants Valium for anxiety, which was provided. Patient sitting in group room and 1:1 was initiated. Patient reports that she is going to be discharged home, but that her fianc is living at her house and now has his nieces there that he rescued from [employer]PS. She states that she tried to commit suicide before coming here because he broke off their engagement. Patient states that he has not called her since being on the unit. Patient states that she is going to have to set boundaries with him when she gets home and try to speak to him privately. Patient has been cooperative and somewhat anxious about going home. She wants a relationship with him still and hopes that they can work things out. Plan: Patients mood seems to be stabilizing, however will continue to titrate and monitor medication until effective dose.
[2022-04-25] MEDS: NICOTINE POLACRILEX 2 MG LOZENGE BC PRN (19:05)
[2022-04-25 19:54] VITALS: BP 95/61
[2022-04-25] MEDS: olanzapine 10mg tablet PO SCH (20:36)
[2022-04-25] MEDS: OLANZapine 2.5MG tablet PO PRN (20:37)
[2022-04-25] MEDS: traZODone 50mg tablet PO PRN (20:37)
--- NOTE | 2022-04-25 21:38 | NUR ---
[facility] PROGRESS NOTE Problem: Patient was admitted from the ER. Reported taking 20 Valium tabs and breaking a glass jar she then used to cut both wrists. Patient has a history of Bipolar DO, depression, anxiety, BPD, Bulimia (resolved), suicide attempts, and self-injurious behavior. Intervention: Provided one on one assessment, encouraging pt to discuss thoughts and feelings, provided safe and supportive environment, administered medication as ordered with no adverse side effect, explained benefits, encouraged participation in ADLs and group, Q15 min safety rounds. Response: Patient was received walking pacing hallways on unit. Patient made a point of spending some time out of the room since she been in their for multiple days. Patient enjoyed having the community room to her self since the halls were empty due to isolation. Patient requested prn Valium and Zyprexa for anxiety. Patient took all night medications and continued to watch tv in community room. Patient eventually went to bed. Plan: Patients mood seems to be stabilizing, however will continue to titrate and monitor medication until effective dose.
[2022-04-26] MEDS: acetaminophen 325mg tablet PO PRN ×2 (06:13→08:42)
[2022-04-26 07:23] VITALS: BP 83/50
[2022-04-26] MEDS: nicotine 21mg patch - 24 hr TD SCH ×2 (08:00)
[2022-04-26] MEDS: tolterodine 2mg SR capsule (24hr) PO SCH (08:41)
[2022-04-26] MEDS: busPIRone 15mg tablet PO SCH (08:42)
[2022-04-26] MEDS: FLUoxetine 20mg capsule PO SCH (08:42)
[2022-04-26] MEDS ORDERED: ibuprofen tablet 400 MG TABLET PO PRN (10:00)
[2022-04-26] MEDS ORDERED: OLAN15TA20 PO (12:34)
[2022-04-26] MEDS ORDERED: NICO-687 TD (12:34)
[2022-04-26] MEDS ORDERED: BUSP30TA3 PO (12:34)
[2022-04-26] MEDS ORDERED: FLUO40CA PO (12:34)
[2022-04-26] MEDS ORDERED: TRAZ-251 PO (12:34)
[2022-04-26] MEDS ORDERED: NICO-907 BC (12:34)
--- NOTE | 2022-04-26 13:34 | NUR ---
military pay technician Note: Patient given discharge instructions. Patient verbalized understanding. All questions were answered. Patient ambulatory with all her belongings, steady gait with Tech Jaret to lobby to await her friend coming to pick her up. Patient denies suicidal ideation. Patient is happy to go home. No distress observed. No wounds and No need for a repeat MRSA.
== END 2022-04-26 14:00 | disposition home or self-care (01) | DRG 881 ==
LOC: ER 16:01 → ED HOLD 21:15 → ADULT MH 04-13 00:18
PROVIDERS: ADMIT Psychiatry & Neurology Psychiatry; ATTEND Psychiatry & Neurology Psychiatry
DX: F32.A Depression, unspecified (principal); R45.851 Suicidal ideations; F39 Unspecified mood [affective] disorder; F17.210 Nicotine dependence, cigarettes, uncomplicated; F12.10 Cannabis abuse, uncomplicated; E87.6 Hypokalemia; N39.3 Stress incontinence (female) (male); Z20.822 Contact with and (suspected) exposure to COVID-19; F15.10 Other stimulant abuse, uncomplicated; F14.10 Cocaine abuse, uncomplicated; N92.1 Excessive and frequent menstruation with irregular cycle; F40.10 Social phobia, unspecified; F41.1 Generalized anxiety disorder; F43.10 Post-traumatic stress disorder, unspecified; N83.292 Other ovarian cyst, left side; Z91.52 Personal history of nonsuicidal self-harm; Z81.8 Family history of other mental and behavioral disorders; Z56.0 Unemployment, unspecified; Z79.899 Other long term (current) drug therapy; Z28.310 Unvaccinated for COVID-19; Z71.6 Tobacco abuse counseling
CPT/HCPCS: 36415; 76830; 76856; 80048; 80053; 80061; 80305; 80320; 81001; 81025; 83036; 84443; 85025; 87081; 87811; 93976; 99285; G0378